=== PATIENT | male | born 1975 | race African-American/Black ===

== ENCOUNTER 2016-12-21 01:23 | Emergency (ER) | payer OTHER ==
[~2016-12-21] VITALS: Ht 182.9 cm; Wt 80.0 kg
--- NOTE | 2016-12-21 02:22 | ERD ---
ER Documentation Chief Complaint Date/Time DATE: 12/21/16 TIME: 02:17 Chief Complaint sp fall from chair, right shoulder pain HPI This 41-year-old male patient presents to emergency department today for evaluation of right shoulder injury. pt reports that he was at work and fell out of chair onto shoulder. pt has tried OTC NSAID, denies numbness or tingeing to fingers Past medical history includes shoulder dislocation, bilaterally, physical therapy and MRI on right shoulder. ROS All systems reviewed and are negative except as per history of present illness. Allergies Allergies: Coded Allergies: No Known Allergy (Unverified , 12/21/16) PMhx/Soc Medical and Surgical Hx: pt denies Medical Hx, pt denies Surgical Hx Hx Alcohol Use: No Hx Substance Use: No Hx Tobacco Use: No Smoking Status: Never smoker Physical Exam Vitals Vital Signs Date Time Temp Pulse Resp B/P Pulse Ox O2 Delivery O2 Flow Rate FiO2 12/21/16 01:26 97.8 78 20 127/78 100 Physical Exam Const: [] Head: Atraumatic Eyes: Normal Conjunctiva ENT: Normal External Ears, Nose and Mouth. Neck: Full range of motion..~ No meningismus. Resp: Clear to auscultation bilaterally Cardio: Regular rate and rhythm, no murmurs Abd: Soft, non tender, non distended. Normal bowel sounds Skin: No petechiae or rashes Back: No midline or flank tenderness Ext: No cyanosis, or edema Neur: Awake and alert Psych: Normal Mood and Affect Results 24 hrs Current Medications Medications (Trade) Dose Ordered Sig/Branden Route PRN Reason Start Time Stop Time Status Last Admin Dose Admin Acetaminophen/ Hydrocodone Bitart ([place] (5/325)) 1 tab ONCE ONCE PO 12/21/16 02:30 12/21/16 02:31 DC 12/21/16 02:29 Procedures/MDM PROCEDURE: Right shoulder. CLINICAL INDICATION: Pain. TECHNIQUE: 2 views of the right shoulder. COMPARISON: None. FINDINGS: No fracture is identified. There is anterior subluxation of the humeral head. The acromioclavicular joint is within normal limits. Bone mineralization is within normal limits. There is no radiopaque foreign body or abnormal calcification. IMPRESSION: No fracture identified. Anterior subluxation of the right humeral head. .Alex Peters MD, MD Date Time Electronically viewed and signed by .Alex Peters MD, MD on 12/21/2016 03:27 GIOVANA LANDAVERDE Dec 21, 2016 02:18
[2016-12-21] MEDS ORDERED: HYDROCODONE/APAP (5/325) TAB PO ONE (02:30)
--- NOTE | 2016-12-21 03:27 | RADRPT ---
PROCEDURE: Right shoulder. CLINICAL INDICATION: Pain. TECHNIQUE: 2 views of the right shoulder. COMPARISON: None. FINDINGS: No fracture is identified. There is anterior subluxation of the humeral head. The acromioclavicula r joint is within normal limits. Bone mineralization is within normal limits. There is no radiopaq ue foreign body or abnormal calcification. IMPRESSION: No fracture identified. Anterior subluxation of the right humeral head. .Alex Peters MD, Date Time Electronically viewed and signed by .Alex Peters MD, on 12/21/2016 03:27 .T/
[2016-12-21] MEDS ORDERED: SOD CHLORIDE 0.9% 1,000 ML IV ONE (04:00)
[2016-12-21] MEDS ORDERED: ONDANSETRON 4 MG INJ IV ONE (04:01)
[2016-12-21 04:36] VITALS: Ht 182.9 cm; Wt 80.0 kg
[2016-12-21] MEDS ORDERED: PROPOFOL 20 ML ONE (04:37)
[2016-12-21] MEDS ORDERED: EMTR1TAB11 PO (05:52)
[2016-12-21] MEDS ORDERED: VALA500T PO (05:52)
[2016-12-21] MEDS ORDERED: NAPR220C2 PO (05:52)
[2016-12-21] MEDS ORDERED: OMEG1CAP2 PO (05:52)
[2016-12-21] MEDS ORDERED: IBUP-1542 PO (05:54)
--- NOTE | 2016-12-21 05:58 | RADRPT ---
PROCEDURE: XR right shoulder. CLINICAL INDICATION: Reduction of subluxation TECHNIQUE: 2 views of the right shoulder were performed. COMPARISON: 12/21 FINDINGS: The humeral head is now located. Small humeral head cyst is seen. No definite fracture. No lytic o r blastic bony lesion. IMPRESSION: Reduction of subluxation.. RPTAT: [facility] Krys Daly Physician Date Time Electronically viewed and signed by Krys Daly Physician on 12/21/2016 05:58 LE/
[2016-12-21 07:00] VITALS: BP 109/68; PULSE 89; RESP 14
--- NOTE | 2016-12-21 07:28 | ERA ---
ER Documentation Chief Complaint Date/Time DATE: 12/21/16 Chief Complaint sp fall from chair, right shoulder pain HPI The patient is a 41-year-old male, presenting with acute right shoulder pain after he fell few hours ago, denies any other injury, denies headache, neck pain , chest pain, dyspnea, abdominal pain. Past medical history/surgical history: None ROS All systems reviewed and are negative except as per history of present illness. Medications Home Meds Active Scripts Ibuprofen* (Motrin*) 600 Mg Tab, 600 MG PO Q6H Y for PAIN, #20 TAB Prov:LUZ RUIZ MD 12/21/16 Reported Medications [place]-3 Acid Ethyl Esters (Lovaza) 1 Gm Capsule, 4 GM PO DAILY, CAP 12/21/16 Naproxen* (Aleve*) 220 Mg Capsule, 220 MG PO Q8, #60 CAP 12/21/16 Emtricitabine-Tenofovir* (Truvada*) 200-300 Mg Tablet, 1 TAB PO DAILY, TAB 12/21/16 Valacyclovir Hcl* (Valacyclovir Hcl*) 500 Mg Tablet, 1000 MG PO DAILY, TAB 12/21/16 Allergies Allergies: Coded Allergies: No Known Allergy (Unverified , 12/21/16) PMhx/Soc Medical and Surgical Hx: pt denies Medical Hx, pt denies Surgical Hx History of Surgery: No Anesthesia Reaction: No Hx Neurological Disorder: No Hx Respiratory Disorders: No Hx Cardiac Disorders: No Hx Psychiatric Problems: No Hx Miscellaneous Medical Probl: Yes (SHOULDER DISLOCATION ) Hx Alcohol Use: No Hx Substance Use: No Hx Tobacco Use: No Smoking Status: Never smoker Physical Exam Vitals Vital Signs Date Time Temp Pulse Resp B/P Pulse Ox O2 Delivery O2 Flow Rate FiO2 12/21/16 05:00 100 5.0 12/21/16 04:45 61 14 121/82 100 Room Air 12/21/16 01:26 97.8 78 20 127/78 100 Physical Exam Const: No acute distress. Head: Atraumatic. Eyes: Normal Conjunctiva. ENT: Normal External Ears, Nose and Mouth. Neck: Full range of motion. No meningismus. Resp: Clear to auscultation bilaterally. Cardio: Regular rate and rhythm. Abd: Soft, non distended, normal bowel sounds, non tender. Skin: No petechiae or rashes. Back: No midline or flank tenderness. Ext: Right shoulder is with limited range of motion and moderate tenderness Neur: Awake and alert. No focal deficit Psych: Normal Mood and Affect. Results 24 hrs Current Medications Medications (Trade) Dose Ordered Sig/Branden Route PRN Reason Start Time Stop Time Status Last Admin Dose Admin Acetaminophen/ Hydrocodone Bitart 1 tab 1 tab ONCE ONCE PO 12/21/16 02:30 12/21/16 02:31 DC 12/21/16 02:29 Sodium Chloride (NS) 1,000 ml @ 1,000 mls/hr Q1H ONCE IV 12/21/16 04:00 12/21/16 04:59 DC 12/21/16 04:20 Ondansetron HCl 4 mg 4 mg ONCE ONCE IV 12/21/16 04:01 12/21/16 04:02 DC 12/21/16 04:33 Propofol (Diprivan) 20 ml @ ud STK-MED ONCE .ROUTE 12/21/16 04:37 12/21/16 04:38 DC Procedures/[place] [address] Radiology Main Line: [phone] DIAGNOSTIC IMAGING REPORT Patient: DEE BROWNE : 1975 Age: 41 Sex: M MR #: [id number] DOS: 12/21/169 Ordering MD: GIOVANA LANDAVERDE NP Location: [facility] Room/Bed: PROCEDURE: Right shoulder. CLINICAL INDICATION: Pain. TECHNIQUE: 2 views of the right shoulder. COMPARISON: None. FINDINGS: No fracture is identified. There is anterior subluxation of the humeral head. The acromioclavicular joint is within normal limits. Bone mineralization is within normal limits. There is no radiopaque foreign body or abnormal calcification. IMPRESSION: No fracture identified. Anterior subluxation of the right humeral head. .Alex Peters MD, Date Time Electronically viewed and signed by .Alex Peters MD, on 12/21/2016 03:27 .T/ CC: SAIMAGIOVANA [place] [address] Radiology Main Line: [phone] DIAGNOSTIC IMAGING REPORT Patient: DEE BROWNE : 1975 Age: 41 Sex: M MR #: [id number] DOS: 12/21/16 0505 Ordering MD: LUZ RUIZ MD Location: E/R Room/Bed: PROCEDURE: XR right shoulder. CLINICAL INDICATION: Reduction of subluxation TECHNIQUE: 2 views of the right shoulder were performed. COMPARISON: 12/21 FINDINGS: The humeral head is now located. Small humeral head cyst is seen. No definite fracture. No lytic or blastic bony lesion. IMPRESSION: Reduction of subluxation.. RPTAT: [facility] Physician Rea Date Time Electronically viewed and signed by Krys Daly Physician on 12/21/2016 05 :58 LE/ CC: LUZ RUIZ MD MEDICAL MAKING DECISION: The patient is a 41-year-old male, presenting with acute right shoulder dislocation. He was reduced without any difficulty. He has normal deltoid sensation of the reduction X-ray Shoulder 3V Interpreted by me: Bones: Right shoulder Joints: Anterior dislocation of the glenohumeral joint Foreign body: None Procedural Sedation: Pre-assessment performed. See preceding complete history and physical for details. Time out performed. See sedation documentation for details. Medication(s): Propofol 80 mg IV Complications: No hypoxic or apneic events Recovered without incident. Greater than 15 minutes of face to face time included in sedation and recovery. Shoulder Reduction by me: Anesthesia: Propofol Location: Rt shoulder Technique: External rotation Results: Hoahaoism of normal anatomic positioning Compl: Neurovascularly intact post procedure. Sling Assessment: Neurovascularly intact post sling placement with good fit. Departure Diagnosis: Primary Impression: Anterior shoulder dislocation Condition: Good Patient Instructions: Dislocation: Shoulder (Reduced) Referrals: MARI GREENBERG MD Additional Instructions: Call Dr Greenberg TOMORROW for an appointment during the next 2-3 days.See the doctor sooner or return here if your condition worsens before your appointment time. He was dced with LUZ Wheatley MD Dec 21, 2016 07:28
== END 2016-12-21 07:18 | disposition home or self-care (01) ==
LOC: FTE 01:23 → E/R 07:18
DX: S43.004A Unspecified dislocation of right shoulder joint, initial encounter (principal); R40.2252 Coma scale, best verbal response, oriented, at arrival to emergency department; R40.2142 Coma scale, eyes open, spontaneous, at arrival to emergency department; R40.2362 Coma scale, best motor response, obeys commands, at arrival to emergency department; W07.XXXA Fall from chair, initial encounter; Y92.9 Unspecified place or not applicable
CPT/HCPCS: 23650; 73030; 94770; 96374; 99284; J7030